=== PATIENT | male | born 1995 | race Two or more races ===

== ENCOUNTER 2024-11-02 12:37 | Emergency (ER) | payer MEDICAID, SELFPAY ==
[2024-11-02 12:37] VITALS: BMI 28.3
[2024-11-02 13:10] VITALS: BP 127/82; PULSE 67; RESP 18; TEMP 37.3; O2SAT 99
--- NOTE | 2024-11-02 13:25 | XR_ITS ---
Examination: Retroperitoneal ultrasound, complete Technique: Multiple high resolution grayscale images of the retroperitoneum obtained, including kidneys and bladder. Exam date and time:November 02, 2024 1338 hours INDICATIONS: Back pain beginning several hours ago FINDINGS: Right kidney 9.9 cm cortex 1.6 cm Left kidney 11.8 cm cortex 1.9 cm Mild renal scar formation No hydronephrosis Contracted urinary bladder Normal prostate IMPRESSION: Mild bilateral renal parenchymal scar formation
--- NOTE | 2024-11-02 13:25 | XR_ITS ---
Examination: Thoracic spine 3 views Technique one AP lateral coned lateral upper dorsal spine 3 views Date and time: November 02, 2024 1409 hours INDICATIONS: Mid back pain today. FINDINGS: Thoracic dextroscoliosis 10 degrees No thoracic fracture No thoracic disc narrowing IMPRESSION: Thoracic dextroscoliosis 10 degrees
--- NOTE | 2024-11-02 13:25 | XR_ITS ---
Examination: Ribs, left, unilateral 2 views Exam date and time: November 02, 2024 1409 hours INDICATIONS: Left-sided rib pain today FINDINGS: No pneumothorax No acute rib fractures IMPRESSION: No acute rib fractures on this limited study
[2024-11-02 15:37] LABS: Collection Type, Urine Voided; Squamous Epithelial Cell,Urine 0 /hpf (0-5)
[2024-11-02 15:44] LABS: Bilirubin,Urine Negative (Negative); Blood,Urine Negative (Negative); Clarity,Urine Clear (Clear/Hazy); Color,Urine Colorless (Lt Yel-Yel); Glucose, Urine Negative (Negative); Ketones,Urine Negative (Negative); Leukocyte Esterase,Urine Negative (Negative); Nitrite,Urine Negative (Negative); PH,Urine 7.0 (5.0-7.0); Protein,Urine Negative (Neg - Trace); RBC,Urine 1 /hpf (0-3); Specific Gravity,Urine 1.015 (1.001-1.035); Urobilinogen,Urine Negative mg/dL (0.0-1.0); WBC,Urine 1 /hpf (0-5)
--- NOTE | 2024-11-02 16:41 | EDNOTE_ITS ---
ED Back Injury Pain RME/HPI General Chief Complaint: Back Pain/Injury Stated Complaint: LEFT FLANK/BACK PAIN x 1 DAYS Time Seen by Provider: 11/02/24 12:44 Arrival date/time: 11/02/24 12:37 This is a case of 39-year-old male with no medical history came in in the emergency room due to left mid back pain radiating to the left flank for 1 day patient denies any injury or trauma denies any urinary symptoms denies any numbness weakness tingling sensation or incontinence to urine or stool Limitations: no limitations Related Data Previous Rx's ?Medication ?Instructions ?Recorded albuterol sulfate 90 mcg/actuation 2 puff inhalation Q 6HR PRN 03/13/16 aerosol inhaler (ProAir HFA) SHORTNESS OF BREATH #1 in h cyclobenzaprine 10 mg tablet 10 mg PO BID PRN muscle s pasm #10 11/02/24 tabs ibuprofen 800 mg tablet 800 mg PO Q8H PRN pain #20 t abs 11/02/24 Allergies Allergy/AdvReac Type Severity Reaction Status Date / Time No Known Allergies Allergy Verified 11/02/24 12:39 Review of Systems Constitutional Constitutional: Reports system reviewed and no additional complaints, except as documented and Reports as per HPI Cardiovascular Cardiovascular: Reports system reviewed and no additional complaints, except as documented and Reports as per HPI Respiratory Respiratory: Reports system reviewed and no additional complaints, except as documented and Reports as per HPI Gastrointestinal Gastrointestinal: Reports system reviewed and no additional complaints, except as documented and Reports as per HPI Musculoskeletal Musculoskeletal: Reports system reviewed and no additional complaints, except as documented and Reports as per HPI Neurologic Neurologic: Reports system reviewed and no additional complaints, except as documented and Reports as per HPI Past Medical History Past Medical History RESPIRATORY: Positive Asthma Social History SMOKING STATUS: Never smoker SUBSTANCE USE: marijuana ED Exam General Limitations: Present no limitations General appearance: Present alert, in no apparent distress and other (Patient is awake alert oriented not in distress nontoxic looking) Head Head exam: Present atraumatic, normocephalic and normal inspection Eye Eye exam: Present normal appearance, PERRL and EOMI ENT ENT exam: Present normal exam, normal oropharynx and mucous membranes moist Neck Neck exam: Present normal inspection, full ROM and trachea midline; Absent tenderness, meningismus, lymphadenopathy or thyromegaly Chest Chest inspection: Present normal inspection and symmetric chest wall rise; Absent tenderness Respiratory Respiratory exam: Present normal lung sounds bilaterally; Absent respiratory distress, wheezes, stridor, accessory muscle use or prolonged expiratory phase Cardiovascular Cardiovascular exam: Present regular rate, normal rhythm and normal heart sounds; Absent bradycardia, tachycardia, irregular rhythm, systolic murmur or diastolic murmur Abdominal Exam Abdominal exam: Present soft and normal bowel sounds; Absent distention, tenderness, guarding, rebound, rigidity, diminished bowel sounds, hyperactive bowel sounds, hypoactive bowel sounds, organomegaly, trauma, psoas sign, obturator sign, Jordan's sign, Rovsing's sign or tenderness at McBurney's Point Extremities Exam Extremities exam: Present normal inspection and full ROM Back Exam Back exam: Present normal inspection, full ROM, tenderness (Mild tenderness on the thoracic area no crepitation no deformity no redness no swelling neurovascular intact ROM intact) and muscle spasm; Absent CVA tenderness (R), CVA tenderness (L), paraspinal tenderness, vertebral tenderness, rashes, sciatic notch tenderness (R), sciatic notch tenderness (L), straight leg raise (R) or straight leg raise (L) Neurological Exam Neurological exam: Present alert, oriented X3, CN II-XII intact, normal gait and reflexes normal; Absent motor sensory deficit Psychiatric Psychiatric exam: Present normal affect and normal mood Skin Skin exam: Present warm, dry, intact and normal color Course Quality Measures none Orders Category Date Time Status US renal BI Stat Exams 11/02/24 13:25 Completed XR ribs LT 2V Stat Exams 11/02/24 13:25 Completed XR thoracic spine 3V Stat Exams 11/02/24 13:25 Completed Urinalysis Stat Lab 11/02/24 15:31 Completed Dexamethasone Inj [Decadron Inj] Med 11/02/24 15:58 Discontinued 10 mg IM X1 ONE HYDROcodone*/APAP 5/325 [Nelson 5/325] Med 11/02/24 15:58 Discontinued 1 tab PO X1 ONE Ketorolac Inj [Toradol Inj] Med 11/02/24 15:58 Discontinued 30 mg IM X1 ONE Vital Signs Vital signs: Vital Signs Temperature 99.2 F 11/02/24 13:10 Pulse Rate 67 11/02/24 13:10 Respiratory Rate 18 11/02/24 13:10 Blood Pressure 127/82 11/02/24 13:10 Pulse Oximetry (%) 99 11/02/24 13:10 Oxygen Delivery Method Room Air 11/02/24 13:10 Oxygen saturation room air 99% room air Back Pain / Injury MDM Narrative MDM Narrative:: This is a case of 39-year-old male with no medical history came in in the emergency room due to left mid back pain radiating to the left flank for 1 day patient denies any injury or trauma denies any urinary symptoms denies any numbness weakness tingling sensation or incontinence to urine or stool physical examination patient is awake alert oriented not in distress nontoxic looking well-hydrated well-nourished patient noted to have mild to moderate tenderness on the left thoracic area no crepitation no deformity no redness no swelling no CVA tenderness no paraspinal no paravertebral tenderness mild muscle spasm rectal exam exam is normal abdominal exam is benign nonsurgical no guarding no rebound no rigidity negative psoas negative straight and negative Rovsing's negative CVA tenderness I do not think patient pain is on the left flank or kidney issue patient pain is more on her thoracic area x-ray of the thoracic and rib showed normal but with dextroscoliosis of the thoracic area patient ultrasound kidney no stone urinalysis also normal patient was given dexamethasone Toradol and Nelson which improved and resolve the pain patient will follow-up with PCP to be referred to Ortho for dextroscoliosis of the thoracic area for any worsening symptoms or any emergent concern call 911 or go to the nearest emergency room no signs and symptoms of cauda equina Patient was discharged with comfortable condition walking with stable gait. Patient verbalized no further complains explained diagnosis and answered patient question. Patient is comfortable with the proposed management plan including the need to follow up with his/her primary care physician and any specialist if applicable Discussed patient for any urgent condition or worsening sx, He/She needed to go to emergency room immediately or call 911. Patient acknowledge the responsibility to follow up as instructed and to monitor her/his symptoms. For any persistence of the symptoms for more than 3-5 days return precaution advised. Discussed the result of the test and was given printed discharge instruction Patient data External records reviewed:: [facility] previous records Clinical information provided by:: patient Social determinants that could affect healthcare access:: none Patient has the following chronic illnesses:: None How is presenting disease/condition affected by chronic disease/condition?: no chronic disease Evaluation data The following diagnostics were reviewed and interpreted by me:: lab results and radiology exam(s) Lab and/or radiology exams considered but not ordered:: Reviewed Interpretation Summary: Reviewed Medications / Prescriptions Medications or Prescriptions considered but not ordered:: Given Medication administrations:: Medication Administration History Discontinued Medications Hydrocodone Bitart/Acetaminophen (Hydrocodone/Apap 5/325 Tablet) 1 tab PO X1 ONE Stop: 11/02/24 15:59 Dexamethasone Sodium Phosphate (Dexamethasone Sod Phos Inj 10 Mg/Ml Vial) 10 mg IM X1 ONE Stop: 11/02/24 15:59 Ketorolac Tromethamine (Ketorolac Inj 60 Mg/2 Ml Vial) 30 mg IM X1 ONE Stop: 11/02/24 15:59 Given Consultations Consultation(s) initiated? (list below): No Diagnosis Differential diagnosis back pain/injury: sciatica, strain of lumbar region and thoracic back pain Most likely diagnosis given after review of the tests above:: Back muscle spasm Admission Indicated Admission indicated?: not indicated Explain why admission is indicated or not indicated:: Not indicated Admission Request Was there a request for admission?: No Admission Attestation Admission request attestation: Not indicated Disposition Plan Disposition Plan: Discharge Discharge Attestation Discharge Attestation: The patient and all family members were given an opportunity to ask questions and understood the discharge instructions. Discharge instructions specifically effects, indications for sooner follow up or return to the emergency department, and the expected course of current diagnosis. Patient condition: Stable Discharge Plan Plan Patient Disposition: HOME (Self Care) Patient condition on transfer: Stable Prescriptions/Referrals Prescriptions/Med Rec: New ibuprofen 800 mg tablet 800 mg PO Q8H PRN (Reason: pain) Qty: 20 0RF cyclobenzaprine 10 mg tablet 10 mg PO BID PRN (Reason: muscle spasm) Qty: 10 0RF No Action albuterol sulfate [ProAir HFA] 8.5 GM HFA aerosol inhaler 2 puff Inhalation Q6HR PRN (Reason: SHORTNESS OF BREATH) Qty: 1 0RF Referrals: Franklin Langford MD [Primary Care Provider, Family Practice] - In 1 week Problem List Clinical Impression: Back muscle spasm, Rib pain, Dextroscoliosis of thoracic spine Patient/Caregiver Discharge Instructions Education Materials: Understanding Scoliosis, ED Back Spasm, No Trauma Additional Instructions: Follow-up with your primary care physician in 2 days for reevaluation and to be referred to orthopedic surgeon for further evaluation and treatment of dextroscoliosis of thoracic area for possible MRI to rule out herniated disc and to be referred to pain management doctor for pain control recurrent persistent worsening symptoms or any emergent concerns such as numbness weakness tingling sensation incontinence to urine or stool call 911 or go to the nearest emergency room take your medication as directed ice pack and warm compress as needed for pain Print Language: Romanian Stand Alone Forms: Mary Ann Award Info., Patient Portal Info Letter PA/KNIFER UP Supervising Physician THEA/MALDONADO Supervising Physician: [email or web address]
[2024-11-02] MEDS: HYDROcodone/APAP 5/325 TABLET 1 TAB PO (16:59)
[2024-11-02] MEDS: DEXAMETHASONE SOD PHOS INJ 10 MG/ML VIAL IM (16:59)
[2024-11-02] MEDS: KETOROLAC INJ 60 MG/2 ML VIAL 30 MG IM (17:00)
== END 2024-11-02 17:12 | disposition home or self-care (01) ==
PROVIDERS: Nurse Practitioner Family; Emergency Provider Emergency Medicine; PCP Family Medicine
DX: M41.9 Scoliosis, unspecified (principal); M62.830 Muscle spasm of back; R07.81 Pleurodynia
CPT/HCPCS: 71100; 72072; 76770; 81001; 96372; 99283; J1100; J1885; A9270